=== PATIENT | male | born 1970 | race Hispanic/Latino ===

== ENCOUNTER 2021-02-14 05:22 | Emergency (ER) | payer OTHER ==
[~2021-02-14] VITALS: Ht 177.8 cm; Wt 136.1 kg
[2021-02-14 05:24] VITALS: BP 154/99
[2021-02-14 06:02] LABS: BASOPHILS % (AUTO) 0.4 % (0.0-5.0); EOSINOPHILS % (AUTO) 3.6 % (0.0-8.0); HEMATOCRIT 46.9 % (42-54); LYMPHOCYTES % (AUTO) 28.6 % (21.0-51.0); MEAN CORPUSCULAR HEMOGLOBIN 30.6 pg (27.0-33.0); MEAN CORPUSCULAR HGB CONC 34.3 g/dL (32.0-36.0); MONOCYTES % (AUTO) 8.6 % (3.0-13.0); NEUTROPHILS % (AUTO) 58.5 % (40.0-77.0); PLATELET COUNT (AUTO) 214 K/uL (130-400); RED BLOOD CELL COUNT(AUTO) 5.27 MIL/uL (4.50-6.20); RED CELL DISTRIBUTION WIDTH 12.9 % (11.0-15.5)
[2021-02-14 06:18] LABS: ALBUMIN 3.4 g/dL (3.5-5.0); BILIRUBIN,TOTAL 0.5 mg/dL (0.2-1.0); POTASSIUM 3.9 mmol/L (3.5-5.1)
[2021-02-14 06:29] LABS: B-TYPE NATRIURETIC PEPTIDE < 5 pg/mL (0-100)
[2021-02-14] MEDS ORDERED: NITROGLYCERIN 1GM OINT 1 INCH/1GM TD SCH (06:30)
[2021-02-14] MEDS ORDERED: ASPIRIN 325MG TAB PO SCH (06:30)
[2021-02-14 06:41] VITALS: BP_SYST 153; BP_SYST 173; BP_DIAS 108; BP_DIAS 69
[2021-02-14] MEDS ORDERED: ASPIRIN 325MG TAB ONE (06:44)
== END 2021-02-14 08:01 | disposition home or self-care (01) ==
LOC: EDH 05:22
DX: F41.9 Anxiety disorder, unspecified (principal); I10 Essential (primary) hypertension; E78.00 Pure hypercholesterolemia, unspecified
CPT/HCPCS: 36415; 71045; 80053; 83880; 84484; 85025; 93005

== ENCOUNTER 2021-05-12 16:06 | Emergency (ER) | payer OTHER ==
[~2021-05-12] VITALS: Ht 177.8 cm; Wt 136.1 kg
[2021-05-12 16:40] LABS: BASOPHILS % (AUTO) 0.1 % (0.0-5.0); EOSINOPHILS % (AUTO) 0.7 % (0.0-8.0); HEMATOCRIT 51.7 % (42-54); LYMPHOCYTES % (AUTO) 6.8 % (21.0-51.0); MEAN CORPUSCULAR HEMOGLOBIN 30.4 pg (27.0-33.0); MEAN CORPUSCULAR VOLUME 89.3 fL (79-99); MONOCYTES % (AUTO) 7.5 % (3.0-13.0); NEUTROPHILS % (AUTO) 84.7 % (40.0-77.0); PLATELET COUNT (AUTO) 217 K/uL (130-400); RED BLOOD CELL COUNT(AUTO) 5.79 MIL/uL (4.50-6.20); RED CELL DISTRIBUTION WIDTH 12.7 % (11.0-15.5); WHITE BLOOD COUNT (AUTO) 8.4 K/uL (4.8-10.8)
[2021-05-12 16:41] LABS: APPEARANCE,URINE Clear (CLEAR); BILIRUBIN,URINE Small (NEGATIVE); COLOR,URINE Dark Yellow (YELLOW); GLUCOSE, URINE (UA) Negative (NEGATIVE); KETONES,URINE Trace mg/dL (NEGATIVE); LEUKOCYTE ESTERASE ,URINE Negative (NEGATIVE); NITRATE,URINE Negative (NEGATIVE); OCCULT BLOOD,URINE Negative (NEGATIVE); PH,URINE 5.5 (5.0-8.0); PROTEIN,URINE Trace mg/dL (NEGATIVE)
[2021-05-12 16:46] LABS: BACTERIA,URINE Rare /HPF (None Seen); RBC,URINE 0-1 /HPF (0-1); WBC,URINE 0-1 /HPF (0-1)
[2021-05-12 16:47] LABS: MUCUS,URINE Rare LPF (None Seen); SQUAMOUS EPITHELIAL CELL,UR Few /HPF (0-2)
[2021-05-12] MEDS ORDERED: CLIN-141 PO (17:11)
[2021-05-12 17:32] LABS: CREATININE 1.2 mg/dL (0.5-1.5); POTASSIUM 3.6 mmol/L (3.5-5.1)
[2021-05-12 17:37] LABS: ALBUMIN 3.7 g/dL (3.5-5.0); BILIRUBIN,TOTAL 0.7 mg/dL (0.2-1.0); TOTAL PROTEIN, SERUM 7.7 g/dL (6.0-8.3)
[2021-05-12 17:48] VITALS: BP 139/93
== END 2021-05-12 17:50 | disposition home or self-care (01) ==
LOC: EDH 16:06
DX: R53.1 Weakness (principal); F41.9 Anxiety disorder, unspecified; T36.0X5A Adverse effect of penicillins, initial encounter; K02.9 Dental caries, unspecified; I10 Essential (primary) hypertension; E66.9 Obesity, unspecified; E78.00 Pure hypercholesterolemia, unspecified; Y92.89 Other specified places as the place of occurrence of the external cause
CPT/HCPCS: 36415; 80053; 81001; 85025

== ENCOUNTER 2021-05-22 09:14 | Emergency (ER) | payer OTHER ==
[~2021-05-22] VITALS: Ht 177.8 cm; Wt 131.5 kg
[~2021-05-22 09:14] MED LIST: CLIN-141 PO
[2021-05-22 10:00] LABS: BASOPHILS % (AUTO) 0.3 % (0.0-5.0); EOSINOPHILS % (AUTO) 2.3 % (0.0-8.0); HEMATOCRIT 48.4 % (42-54); LYMPHOCYTES % (AUTO) 19.2 % (21.0-51.0); MEAN CORPUSCULAR HEMOGLOBIN 30.6 pg (27.0-33.0); MEAN CORPUSCULAR HGB CONC 34.3 g/dL (32.0-36.0); MEAN CORPUSCULAR VOLUME 89.1 fL (79-99); MONOCYTES % (AUTO) 7.6 % (3.0-13.0); NEUTROPHILS % (AUTO) 70.2 % (40.0-77.0); PLATELET COUNT (AUTO) 261 K/uL (130-400); RED BLOOD CELL COUNT(AUTO) 5.43 MIL/uL (4.50-6.20); RED CELL DISTRIBUTION WIDTH 12.6 % (11.0-15.5); WHITE BLOOD COUNT (AUTO) 10.6 K/uL (4.8-10.8)
[2021-05-22] MEDS ORDERED: HYDROCODONE/ACETAMINOPHEN 5/325 MG TAB PO SCH (10:00)
[2021-05-22] MEDS ORDERED: DEXAMETHASONE 4 MG TAB PO SCH (10:00)
[2021-05-22] MEDS ORDERED: CEFTRIAXONE 1G VIAL IM SCH (10:00)
[2021-05-22 10:17] LABS: CREATININE 1.1 mg/dL (0.5-1.5)
[2021-05-22] MEDS ORDERED: LIDOCAINE HCL-MPF 1% 2ML VIAL ONE (10:20)
[2021-05-22 10:22] LABS: ALBUMIN 3.7 g/dL (3.5-5.0); BILIRUBIN,TOTAL 0.8 mg/dL (0.2-1.0); TOTAL PROTEIN, SERUM 7.7 g/dL (6.0-8.3)
[2021-05-22] MEDS ORDERED: IBUPROFEN 800 MG TAB ONE (10:49)
[2021-05-22] MEDS ORDERED: CEPH500B PO ×2 (11:20→11:22)
[2021-05-22] MEDS ORDERED: METH4TAB3 PO ×2 (11:20→11:22)
[2021-05-22] MEDS ORDERED: IBUP-2070 PO ×2 (11:20→11:22)
[2021-05-22 11:48] VITALS: BP 178/74
== END 2021-05-22 11:49 | disposition home or self-care (01) ==
LOC: EDH 09:14
DX: J03.90 Acute tonsillitis, unspecified (principal); I10 Essential (primary) hypertension; Z79.1 Long term (current) use of non-steroidal anti-inflammatories (NSAID); Z79.52 Long term (current) use of systemic steroids
CPT/HCPCS: 36415; 70490; 80053; 85025; 87880; 96372; 99284; J0696; J3490; J8540

== ENCOUNTER 2021-05-27 02:40 | Emergency (ER) | payer OTHER ==
[~2021-05-27] VITALS: Ht 177.8 cm; Wt 131.5 kg
[~2021-05-27 02:40] MED LIST changes: +CEPH500B PO; +IBUP-2070 PO; +METH4TAB3 PO
[2021-05-27] MEDS ORDERED: DEXAMETHASONE SOD PHOSPHATE 4 MG/ML 1ML VIAL IVP ONE (03:30)
[2021-05-27 03:34] LABS: BASOPHILS % (AUTO) 0.2 % (0.0-5.0); EOSINOPHILS % (AUTO) 0.9 % (0.0-8.0); HEMATOCRIT 47.4 % (42-54); LYMPHOCYTES % (AUTO) 20.6 % (21.0-51.0); MEAN CORPUSCULAR HGB CONC 33.3 g/dL (32.0-36.0); MEAN CORPUSCULAR VOLUME 89.9 fL (79-99); MONOCYTES % (AUTO) 7.5 % (3.0-13.0); NEUTROPHILS % (AUTO) 70.5 % (40.0-77.0); PLATELET COUNT (AUTO) 257 K/uL (130-400); RED BLOOD CELL COUNT(AUTO) 5.27 MIL/uL (4.50-6.20); RED CELL DISTRIBUTION WIDTH 12.6 % (11.0-15.5); WHITE BLOOD COUNT (AUTO) 13.3 K/uL (4.8-10.8)
[2021-05-27 03:43] LABS: POTASSIUM 3.6 mmol/L (3.5-5.1)
[2021-05-27 03:48] LABS: ALBUMIN 3.4 g/dL (3.5-5.0); BILIRUBIN,TOTAL 0.8 mg/dL (0.2-1.0); CRP QUANTITATIVE 15.7 mg/L (0.00-9.0); TOTAL PROTEIN, SERUM 7.1 g/dL (6.0-8.3)
[2021-05-27] MEDS ORDERED: 0.9%NACL 1000ML 1,000 ML IV ONE (04:00)
[2021-05-27] MEDS ORDERED: IOHEXOL-350 50ML VIAL IV ONE (04:11)
[2021-05-27] MEDS ORDERED: CLINDAMYCIN IVPB 600MG/50ML 50 ML IV ONE (06:00)
[2021-05-27 13:33] VITALS: BP 145/98
== END 2021-05-27 14:06 | disposition home or self-care (01) ==
LOC: EDH 02:40
DX: J36 Peritonsillar abscess (principal); K04.7 Periapical abscess without sinus; Z79.52 Long term (current) use of systemic steroids; Z79.1 Long term (current) use of non-steroidal anti-inflammatories (NSAID); Z79.899 Other long term (current) drug therapy
CPT/HCPCS: 36415; 41800; 70491; 80053; 83605; 84145; 85025; 86140; 87070; 87076; 96361; 96365; 96375; 99285; J1100; J3490; Q9967

== ENCOUNTER 2021-07-11 07:37 | Emergency (ER) | payer OTHER ==
[~2021-07-11] VITALS: Ht 177.8 cm; Wt 131.5 kg
[2021-07-11 07:47] VITALS: BP 135/95
[2021-07-11] MEDS ORDERED: CYCLOBENZAPRINE HCL 10 MG TABLET PO ONE (13:00)
[2021-07-11] MEDS ORDERED: KETOROLAC 60 MG VIAL (30MG/ML) IM ONE (13:00)
[2021-07-11] MEDS ORDERED: IBUP-1552 PO (13:35)
[2021-07-11] MEDS ORDERED: CYCL10TA16 PO (13:35)
== END 2021-07-11 14:00 | disposition home or self-care (01) ==
LOC: EDH 07:37
DX: S22.32XA Fracture of one rib, left side, initial encounter for closed fracture (principal); S20.212A Contusion of left front wall of thorax, initial encounter; E78.5 Hyperlipidemia, unspecified; Z79.1 Long term (current) use of non-steroidal anti-inflammatories (NSAID); Z79.52 Long term (current) use of systemic steroids; E66.9 Obesity, unspecified; Z68.41 Body mass index [BMI] 40.0-44.9, adult; W01.0XXA Fall on same level from slipping, tripping and stumbling without subsequent striking against object, initial encounter; X58.XXXA Exposure to other specified factors, initial encounter; Y93.89 Activity, other specified; Y92.89 Other specified places as the place of occurrence of the external cause; Y99.8 Other external cause status
CPT/HCPCS: 71045; 71100; 96372; 99284; J1885